=== PATIENT | female | born 1955 | race Two or more races ===

== ENCOUNTER 2024-03-22 14:37 | Emergency (ER) | payer MEDICARE, OTHER, SELFPAY ==
[2024-03-22 14:39] VITALS: BP 123/81
--- NOTE | 2024-03-22 15:15 | ED.GENMED ---
History of Present Illness
General
Chief Complaint: Musculo-Skeletal Complaint
Source: patient
Exam Limitations: none
Time Seen by Provider: 03/22/24 14:55
Nursing documentation reviewed up to this point in time: agreed with
Travel History
Have you had any contact with someone who has COVID-19?: No
Do you have any symptoms of coronavirus? Fever > 100 degrees, chills, cough, shortness of breath, sore throat, loss of taste or smell, muscle aches, or headache?: No
History of Present Illness
History of Present Illness:
Patient is a 68-year-old female presents to the emergency department complaining of right foot and ankle pain after falling off a chair today while trying to hang a. Patient has pain and swelling and is unable to weight-bear. Patient denies any
other injuries. Patient denies any numbness or paresthesias. Patient denies hitting her head or neck.
Past History
Past History
ED Past Medical History: None
ED Past Surgical History: Gynecological
Social History
Tobacco: Non-smoker
Review of Systems
Review of Systems
All Other Systems: Not applicable
Phy Exam
Physical Exam
Physical Exam:
Physical Exam
General: No apparent distress, alert and appropriate, well nourished, well hydrated
HENT: Normocephalic and atraumatic, supple
Eyes: Clear sclera, conjuctiva without injection
Neuro: Alert and oriented x 3, CN II - XII intact, no motor focality, no cerebellar dysfunction
Skin: no wounds
Psychiatric: well kept. interactive and cooperative
Extremities: No cyanosis. Diffuse right ankle and heel tenderness and swelling. Neurovascular and tendons intact. No foot or knee tenderness.
Scores
Heart Failure Risk
Heart Failure Risk Score: Not Applicable
Heart Score for Chest Pain Patients
STEMI patient?: Not applicable
Withdrawal Assessment of Alcohol
Withdrawal Assessment Completed?: Not applicable
Course
Orders/Labs/Results
Orders:
Orders
03/22/24 14:43
CR Ankle - Right Min 3 Views * Urgent
Comment:
Reason For Exam: injury, pain
03/22/24 15:04
Calcaneus, Right 2 View [CR Heel/os Calcis - Right 2 Vw] Urgent
Comment:
Reason For Exam: pain and swelling
03/22/24 15:40
Treatment- Walker ONCE
boot [Ortho Boot Right- Treatment] ONCE
Short or tall?: Tall
Vital Signs
Initial and Last Documented VS:
Initial Vital Signs
Temp Pulse Resp BP Pulse Ox
98.9 F 77 16 123/81 98
03/22/24 14:39 03/22/24 14:39 03/22/24 14:39 03/22/24 14:39 03/22/24 14:39
Last Documented Vital Signs
Temp Pulse Resp BP Pulse Ox
98.9 F 77 16 123/81 98
03/22/24 14:39 03/22/24 14:39 03/22/24 14:39 03/22/24 14:39 03/22/24 14:39
*Radiology
Radiology exam reviewed: preliminary read by ED provider (Fracture calcaneus)
*Pulse Oximetry
Patient hypoxic: no
*EKG
Interpreted by ED Provider?: NA
*Power Sewing Machine Operator Interpretation
Rate: Power Sewing Machine Operator- N/A
*Critical Care Note
Total Time (30-74mins, 75-104mins- exclusive of procedures): Not Applicable
Update Note
Update Note:
Patient referred to orthopedics. Discussed the findings with the patient and her daughter who is an orthopedic surgeon.
ED Attending Note
-
Portions of this chart may have been created with voice recognition software.� Occasional wrong word or��sound alike� substitutions may have occurred due to the inherent limitations of voice recognition software.
Discharge Plan
Departure
Prescriptions:
No Action
multivitamin 1 EACH tablet
1 ea PO DAILY
Referrals:
NONE,* [Family Provider] -
Interventions
Interventions:
*Risk Screen - Suicide Last Done: 03/22/24 15:15
*General Assessment Last Done: 03/22/24 14:39
*Neglect/Abuse Screening Last Done: 03/22/24 15:15
ED- Fall Risk Assessment Last Done: 03/22/24 15:14
*ED COVID-19 Vaccine History Last Done: 03/22/24 14:39
ED-Musculoskeletal Assessment Last Done: 03/22/24 15:14
Discharge Date and Time
Print Language: SINHALA
[2024-03-22 16:26] VITALS: BP 125/79
== END 2024-03-22 16:28 | disposition home or self-care (01) ==
LOC: EMR 14:37
PROVIDERS: EMERGENCY PHYSICIAN Emergency Medicine
DX: S92.001A Unspecified fracture of right calcaneus, initial encounter for closed fracture (principal); W07.XXXA Fall from chair, initial encounter
CPT/HCPCS: 99284; 73610; 73650; 73700